=== PATIENT | male | born 1990 | race Caucasian/White ===

== ENCOUNTER 2022-09-14 12:38 | Emergency (ER) | payer BC ==
[2022-09-14] MEDS ORDERED: Iopamidol 612 MG/ML 100 ML Bottle IVPUSH ONE (13:17)
[2022-09-14] MEDS ORDERED: Sodium Chloride 0.9% 10 ML Syringe FLUSH PRN (13:17)
[2022-09-14] MEDS ORDERED: Sodium Chloride 0.9% 100 ML IV SCH (13:30)
== END 2022-09-14 14:18 | disposition home or self-care (01) ==
LOC: JD.ED 12:38
DX: S39.011A Strain of muscle, fascia and tendon of abdomen, initial encounter (principal); Z88.0 Allergy status to penicillin; Z91.048 Other nonmedicinal substance allergy status; Z79.4 Long term (current) use of insulin; W55.12XA Struck by horse, initial encounter
CPT/HCPCS: 71260; 74177; 99283; J3490; Q9967; 99284